=== PATIENT | female | born 1965 | race Caucasian/White ===

== ENCOUNTER 2021-08-26 13:44 | Emergency (ER) | payer BC ==
[~2021-08-26] VITALS: Ht 167.6 cm; Wt 68.0 kg
[2021-08-26] MEDS ORDERED: Robaxin750 MG PO (16:36)
== END 2021-08-26 16:46 | disposition home or self-care (01) ==
LOC: ER 13:44
DX: M54.50 Low back pain, unspecified (principal); Z79.899 Other long term (current) drug therapy; Z88.8 Allergy status to other drugs, medicaments and biological substances
CPT/HCPCS: 72100; 96372; 99283-25; J1885